=== PATIENT | male | born 1955 | race Caucasian/White ===

== ENCOUNTER 2017-03-01 06:47 | Day surgery (SDC) | payer BC, OTHER ==
[2017-03-01] MEDS ORDERED: Lactated Ringers 1,000 ML IV SCH (07:00)
[2017-03-01] MEDS ORDERED: Midazolam 1 MG/ML 2 ML SDV IV ONE (08:45)
[2017-03-01] MEDS ORDERED: Propofol 200 MG/20 ML SDV IV ONE (08:45)
--- NOTE | 2017-03-01 09:13 | PCM.OPNOTE ---
- General Post-Op/Procedure Note Date of Surgery/Procedure: 03/01/17 Operative Procedure(s): c scope with bx Findings: transverse and rectal polyp sigmoid diverticulosis Pre Op Diagnosis: hx of dysplastic colon polyp Post-Op Diagnosis: transverse and rectal polyp/ sigmoid divericulosis Anesthesia Technique: MAC Primary Surgeon: Anjel Phan Anesthesia Provider: Marleni Reynolds Pathology: transverse and rectal polyp Complications: None Condition: Good Free Text/Narrative:: see dictation
--- NOTE | 2017-03-01 09:57 | OR ---
DATE OF OPERATION: 03/01/2017 SURGEON: Anjel Phan MD PROCEDURE PERFORMED: Colonoscopy with cold forceps biopsy. PREOPERATIVE DIAGNOSIS: Personal history of dysplastic colon polyps. POSTOPERATIVE DIAGNOSIS: A 5-mm polyp, transverse colon, and rectal polyp. INDICATIONS FOR PROCEDURE: This is a 61-year-old white male with a personal history of dysplastic colon polyps. He presents for his followup scope. He was offered and accepted C. DESCRIPTION OF OPERATION: After an excellent IV sedation was administered, digital rectal exam was performed. No marked abnormality was noted. The flexible colonoscope was inserted and advanced to the cecum without difficulty. The prep was excellent. The following findings were noted. Ascending colon, unremarkable. Transverse colon, a small polyp, biopsied and obliterated with a single pass of 5 mm biopsy forceps. Descending colon, unremarkable. Sigmoid, mild diverticulosis. Rectum, a small polypoid lesion, again approximately 4 to 5 mm in size, biopsied 5 mm port. The colon was deflated. The scope was removed. The patient tolerated the procedure well and was taken to recovery room. /[id number] /MODL
[2017-03-01 12:44] VITALS: BP 139/86
== END 2017-03-01 10:50 | disposition home or self-care (01) ==
LOC: FB.SDS 06:47
PROVIDERS: ATTEND Surgery
DX: Z12.11 Encounter for screening for malignant neoplasm of colon (principal); K63.5 Polyp of colon; K62.1 Rectal polyp; K57.30 Diverticulosis of large intestine without perforation or abscess without bleeding; Z79.82 Long term (current) use of aspirin; Z79.899 Other long term (current) drug therapy; J30.1 Allergic rhinitis due to pollen; E78.5 Hyperlipidemia, unspecified; Z98.890 Other specified postprocedural states; Z87.891 Personal history of nicotine dependence
CPT/HCPCS: 45380; 88305; J2250; J2704; J7120